=== PATIENT | female | born 1940 | race Caucasian/White ===

== ENCOUNTER 2021-05-10 19:36 | Emergency (ER) | payer MEDICARE, OTHER ==
[2021-05-10] VITALS (10 sets, daily range): BP systolic 93–121; BP diastolic 49–65
[~2021-05-10] VITALS: Ht 160 cm; Wt 52.7 kg
[~2021-05-10 19:36] MED LIST: AUGMENTIN 500 M1 TAB PO
[2021-05-10 19:50] LABS: BASO # 0.1 10*3/uL (0.0-0.1); BASO % 0.5 % (0.0-1.0); HEMATOCRIT 43.8 % (37.0-47.0); LYMPH # 0.7 10*3/uL (1.3-4.4); LYMPH % 6.5 % (27.0-41.0); MEAN CELL VOLUME 102.1 fl (81.0-99.0); MEAN CORPUSCULAR HGB 31.5 pg (27.0-31.0); MEAN CORPUSCULAR HGB CONC 30.8 g/dl (33.0-37.0); MEAN PLATELET VOLUME 10.6 fl (9.6-12.3); MONO # 1.3 10*3/uL (0.1-1.0); MONO % 12.2 % (3.0-9.0); NEUT # 8.1 10*3/uL (2.3-7.9); NEUT % 79.4 % (47.0-73.0); NUCLEATED RED BLOOD CELL 0.1 10*3/uL (0.0-0.0); NUCLEATED RED BLOOD CELL 0.5 % (0.0-0.0); PLATELET COUNT AUTOMATED 230 10*3/uL (130-400); RED BLOOD COUNT 4.29 10*6/uL (4.10-5.10); RED CELL DISTRI WIDTH 18.1 % (0-14.5); WHITE BLOOD COUNT 10.2 10*3/uL (4.8-10.8)
[2021-05-10 19:56] LABS: ARTERIAL BLOOD GAS PO2 85.3 (80-90)
[2021-05-10 19:59] LABS: ABG BASE EXCESS -6.8 mmol/L (-2.0-2.0); ARTERIAL BLOOD GAS PH 7.107 (7.35-7.45)
[2021-05-10 20:08] LABS: ALBUMIN 3.3 gm/dl (3.1-4.5); CREATININE 1.92 mg/dL (0.55-1.02); POTASSIUM 5.9 mmol/L (3.5-5.1)
[2021-05-10 20:12] LABS: TROPONIN I 0.075 ng/ml (<0.045)
[2021-05-10 20:33] LABS: BILIRUBIN 2+ (Negative); BLOOD Trace-Lysed (Negative); CLARITY Turbid (Clear); COLOR Orange (Yellow); GLUCOSE Negative (Negative); KETONE Negative (Negative); LEUKO ESTERASE 1+ (Negative); NITRITE Positive (Negative)
[2021-05-10 20:39] LABS: BACTERIA 4+; EPITHELIAL CELLS TNTC; MUCOUS TRACE; RBC 0-2 rbc/hpf (0-2)
[2021-05-11] VITALS (10 sets, daily range): BP systolic 91–111; BP diastolic 46–58
== END 2021-05-11 06:00 | disposition short-term general hospital (02) ==
LOC: ED 19:36 → EDHOLD 05-11 00:52 → ED 05-11 06:00
PROVIDERS: Emergency Medicine
DX: A41.9 Sepsis, unspecified organism (principal); J18.9 Pneumonia, unspecified organism; J96.90 Respiratory failure, unspecified, unspecified whether with hypoxia or hypercapnia; N39.0 Urinary tract infection, site not specified; R74.01 Elevation of levels of liver transaminase levels; R23.0 Cyanosis